=== PATIENT | male | born 1955 | race Asian ===

== ENCOUNTER 2020-07-19 10:04 | Emergency (ER) | payer OTHER ==
[~2020-07-19] VITALS: Ht 160 cm; Wt 60.0 kg
--- NOTE | 2020-07-19 10:20 | ED.ADGEN ---
General Adult EDM: Chief Complaint: ABDOMINAL PAIN HPI: HPI: Patient is a 64-year-old male who arrives ambulatory to the emergency department complaining of intermittent abdominal pain over the past month. The patient re ports his pain became increasingly worse last night in the epigastric region. Patient states his pain was so strong that he was unable to sleep at any time. Patient does report to be nauseated however has not had problems with vomiting or diarrhea. The patient does report fevers however he is afebrile here. He denies any shortness of air or chest pain. He further denies medical problems and has had both rounds of the coronavirus vaccine. He is awake, alert and nontoxic-appearing. Review of Systems: Review of Systems: Constitutional: Reports fever. Denies chills. [] Eyes: Denies change in visual acuity. [] HENT: Denies nasal congestion or sore throat. [] Respiratory: Denies cough or shortness of breath. [] Cardiovascular: Denies chest pain or edema. [] GI: Reports abdominal pain and nausea. Denies vomiting, bloody stools or diarrhea. [] : Denies dysuria. [] Musculoskeletal: Denies back pain or joint pain. [] Integument: Denies rash. [] Neurologic: Denies headache, focal weakness or sensory changes. [] Endocrine: Denies polyuria or polydipsia. [] Lymphatic: Denies swollen glands. [] Psychiatric: Denies depression or anxiety. [] Current Medications: Current Medications Medications (Trade) Dose Ordered Sig/Jeny Start Time Stop Time Status Last Admin Dose Admin Info (CONTRAST GIVEN -- Rx MONITORING) 1 each PRN DAILY PRN 07/19/20 11:45 07/21/20 11:44 Iohexol (Omnipaque 300 Mg/ml) 75 ml 1X ONCE 07/19/20 12:00 07/19/20 12:01 DC 07/19/20 11:50 75 ML Allergies: Allergies: Allergies Coded Allergies Type Severity Reaction Last Updated Verified No Known Drug Allergies 07/19/20 No Physical Exam: PE: Constitutional: Well developed, well nourished, no acute distress, non-toxic appearance. [] HENT: Normocephalic, atraumatic, bilateral external ears normal, oropharynx moist, no oral exudates, nose normal. [] Eyes: PERRLA, EOMI, conjunctiva normal, no discharge. [] Neck: Normal range of motion, no tenderness, supple, no stridor. [] Cardiovascular:Heart rate regular rhythm, no murmur [] Lungs & Thorax: Bilateral breath sounds clear to auscultation [] Abdomen: Mild tenderness to palpation of the epigastric region of the patient's abdomen. No guarding rebound is present. Bowel sounds normal, soft, no masses, no pulsatile masses. [] Skin: Warm, dry, no erythema, no rash. [] Back: No tenderness, no CVA tenderness. [] Extremities: No tenderness, no cyanosis, no clubbing, ROM intact, no edema. [] Neurologic: Alert and oriented X 3, normal motor function, normal sensory function, no focal deficits noted. [] Psychologic: Affect normal, judgement normal, mood normal. [] Current Patient Data: Labs: Laboratory Tests Test 07/19/20 10:37 07/19/20 10:45 White Blood Count 5.7 x10^3/uL (4.0-11.0) Red Blood Count 4.84 x10^6/uL (4.30-5.70) Hemoglobin 13.9 g/dL (13.0-17.5) Hematocrit 40.7 % (39.0-53.0) Mean Corpuscular Volume 84 fL (79-100) Mean Corpuscular Hemoglobin 29 pg (25-35) Mean Corpuscular Hemoglobin Concent 34 g/dL (31-37) Red Cell Distribution Width 13.5 % (11.5-14.5) Platelet Count 123 x10^3/uL (140-400) L Neutrophils (%) (Auto) 64 % (31-73) Lymphocytes (%) (Auto) 25 % (24-48) Monocytes (%) (Auto) 8 % (0-9) Eosinophils (%) (Auto) 3 % (0-3) Basophils (%) (Auto) 1 % (0-3) Neutrophils # (Auto) 3.6 x10^3/uL (1.8-7.7) Lymphocytes # (Auto) 1.4 x10^3/uL (1.0-4.8) Monocytes # (Auto) 0.4 x10^3/uL (0.0-1.1) Eosinophils # (Auto) 0.2 x10^3/uL (0.0-0.7) Basophils # (Auto) 0.0 x10^3/uL (0.0-0.2) Sodium Level 142 mmol/L (136-145) Potassium Level 2.9 mmol/L (3.5-5.1) *L Chloride Level 106 mmol/L (98-107) Carbon Dioxide Level 29 mmol/L (21-32) Anion Gap 7 (6-14) Blood Urea Nitrogen 15 mg/dL (8-26) Creatinine 0.9 mg/dL (0.7-1.3) Estimated GFR (Cockcroft-Gault) 85.0 BUN/Creatinine Ratio 17 (6-20) Glucose Level 146 mg/dL (70-99) H Calcium Level 8.6 mg/dL (8.5-10.1) Total Bilirubin 0.2 mg/dL (0.2-1.0) Aspartate Amino Transferase (AST) 19 U/L (15-37) Alanine Aminotransferase (ALT) 32 U/L (16-63) Alkaline Phosphatase 76 U/L (46-116) Troponin I Quantitative 0.039 ng/mL (0.000-0.055) Total Protein 7.0 g/dL (6.4-8.2) Albumin 3.3 g/dL (3.4-5.0) L Albumin/Globulin Ratio 0.9 (1.0-1.7) L Lipase 162 U/L (73-393) Urine Collection Type Unknown Urine Color Yellow Urine Clarity Clear Urine pH 6.5 (<5.0-8.0) Urine Specific [place] 1.010 (1.000-1.030) Urine Protein Negative mg/dL (NEG-TRACE) Urine Glucose (UA) Negative mg/dL (NEG) Urine Ketones (Stick) Negative mg/dL (NEG) Urine Blood Negative (NEG) Urine Nitrite Negative (NEG) Urine Bilirubin Negative (NEG) Urine Urobilinogen Dipstick 0.2 mg/dL (0.2 mg/dL) Urine Leukocyte Esterase Negative (NEG) Urine RBC 0 /HPF (0-2) Urine WBC 0 /HPF (0-4) Urine Squamous Epithelial Cells Few /LPF Urine Bacteria 0 /HPF (0-FEW) Laboratory Tests 07/19/20 10:37 Laboratory Tests 07/19/20 10:37 Vital Signs: Vital Signs Date Time Temp Pulse Resp B/P (MAP) Pulse Ox O2 Delivery O2 Flow Rate FiO2 07/19/20 10:11 98.2 68 16 196/87 (123) 96 Room Air 98.2 EKG: EKG: [] EKG obtained at 10:28 AM reveals a sinus rhythm with a ventricular rate of 63 bpm. There is what appears to be an incomplete right bundle branch block present. There are T wave inversion in the anterior lateral leads without acute ST/T wave changes to denote acute ischemia. Heart Score: C/O Chest Pain: No Risk Factors: Risk Factors: DM, Current or recent (<one month) smoker, HTN, HLP, family history of CAD, obesity. Risk Scores: Score 0 - 3: 2.5% MACE over next 6 weeks - Discharge Home Score 4 - 6: 20.3% MACE over next 6 weeks - Admit for Clinical Observation Score 7 - 10: 72.7% MACE over next 6 weeks - Early Invasive Strategies Radiology/Procedures: Radiology/Procedures: [] Impression: [facility] [address] [place] [address] IMAGING REPORT Signed PATIENT: ALEX JUNE ACCOUNT: [id number] : 1955 LOCATION: ER AGE: 64 SEX: M EXAM STATUS: PRE ER ORD. PHYSICIAN: IMAN QUIÑONES DO REASON: Epigastric abdominal pain/nausea PROCEDURE: ACUTE ABDOMEN SERIES XR ABDOMEN COMP ACUTE History: Reason: Epigastric abdominal pain/nausea / Spl. Instructions: / History: Technique: Supine and upright views of the abdomen. Comparison: None. Findings: No consolidation or pleural effusion. Normal heart size. No pneumothorax. No pneumoperitoneum. Mild small bowel gas. Air and stool throughout the colon. Mild colonic stool burden. Multilevel lumbar spondylosis. No air-fluid levels. Impression: 1. Nonobstructed bowel gas pattern. Electronically signed by: Denis Sheffield DO (07/19/2020 10:34 AM) [id number] DICTATED and SIGNED BY: DENIS SHEFFIELD DO DATE: 07/19/20 [id number] [facility] [address] [place] [address] IMAGING REPORT Signed PATIENT: ALEX JUNE ACCOUNT: [id number] : 1955 LOCATION: ER AGE: 64 SEX: M EXAM STATUS: REG ER ORD. PHYSICIAN: IMAN QUIÑONES DO REASON: abd PAIN PROCEDURE: CT ABD PELV W/ IV CONTRST ONLY PQRS Compliance Statement: One or more of the following individualized dose reduction techniques were utilized for this examination: 1. Automated exposure control 2. Adjustment of the mA and/or kV according to patient size 3. Use of iterative reconstruction technique CT ABDOMEN+PELVIS W Clinical Indication: Reason: abd PAIN / Spl Comparison: None. Technique: Helical CT imaging of the abdomen and pelvis is performed after 75 cc of Omnipaque 300 IV contrast. Oral contrast not administered. Findings: There is bilateral dependent atelectasis. Cardiac size upper limits of normal. Coronary artery disease. There are several hepatic cysts, largest measures 2.7 cm. The gallbladder is contracted. The spleen, pancreas, adrenal glands, and abdominal aorta caliber are normal. Kidneys enhance symmetrically, no hydronephrosis. No obvious abnormality of the stomach. There is no dilated small bowel. The distal colon is decompressed limiting evaluation. No colon wall thickening is seen. Appendix is not identified, no secondary signs of appendicitis. No abdominal adenopathy or free fluid is identified. Urinary bladder is mostly decompressed. There is mild wall thickening. The prostate is moderately enlarged. No pelvic free fluid is seen. There is transitional lumbosacral anatomy. The last fully formed disc space will be considered L5/S1. There is mild grade 1 anterolisthesis of L5 on S1. There is mild grade 1 retrolisthesis of L4 on L5. IMPRESSION: 1. Moderate prostatomegaly. 2. Mild wall thickening of mostly decompressed urinary bladder. Considerations include chronic bladder outlet obstruction, lack of distention, or nonspecific cystitis. 3. Hepatic cysts. Electronically signed by: Darrin Still MD (07/19/2020 12:32 PM) [id number] DICTATED and SIGNED BY: DARRIN STILL MD DATE: 07/19/20 [id number] Course & Med Decision Making: Course & Med Decision Making Pertinent Labs and Imaging studies reviewed. (See chart for details) I spoke with the patient and communicated to him that he needs to follow-up with GI. I provided him with Dr. Farley's information and have advised that he consider follow-up as well as possible endoscopy. The patient's is present and states he will do so. In the meantime of asked that he take a bland diet. Should he develop any fevers, vomiting or worsening pain he is to return. The patient understands and has agreed to do so. He is nontoxic-appearing and stable for discharge. [] Dragon Disclaimer: Dragon Disclaimer: This electronic medical record was generated, in whole or in part, using a voice recognition dictation system. Departure Departure Impression: Primary Impression: Abdominal pain Additional Impression: Hypokalemia Disposition: 01 DC HOME SELF CARE/HOMELESS Condition: GOOD Referrals: LINDA FARLEY MD Patient Instructions: Abdominal Pain, Hypokalemia Additional Instructions: Please take a bland diet during this time and consider GI follow-up for consultation and possible EGD/colonoscopy. Scripts Dicyclomine Hcl (DICYCLOMINE HCL) 10 Mg Capsule 1 CAP PO PRN Q6HRS for 3 Days, #12 CAP 3 Refills Prov: IMAN QUIÑONES DO 07/19/20 Famotidine (PEPCID) 20 Mg Tablet 20 MG PO BID for 15 Days, #30 TAB Prov: IMAN QUIÑONES DO 07/19/20 Ondansetron Hcl (ZOFRAN) 4 Mg Tablet 1 TAB PO PRN Q6-8HRS for nausea for 3 Days, #12 TAB Prov: IMAN QUIÑONES DO 07/19/20 Potassium Chloride (POTASSIUM CHLORIDE ) 20 Meq Tablet.er 40 MEQ PO DAILY for SUPPLEMENT for 5 Days, #5 TAB.SR Prov: IMAN QUIÑONES DO 07/19/20 Problem Qualifiers IMAN QUIÑONES DO Jul 19, 2020 10:20
--- NOTE | 2020-07-19 10:36 | RAD ---
XR ABDOMEN COMP ACUTE History: Reason: Epigastric abdominal pain/nausea / Spl. Instructions: / History: Technique: Supine and upright views of the abdomen. Comparison: None. Findings: No consolidation or pleural effusion. Normal heart size. No pneumothorax. No pneumoperitoneum. Mild small bowel gas. Air and stool throughout the colon. Mild colonic stool burden. Multilevel lumba r spondylosis. No air-fluid levels. Impression: 1. Nonobstructed bowel gas pattern. Electronically signed by: Denis Sheffield DO (07/19/2020 10:34 AM) [id number]
[2020-07-19 10:47] LABS: BASO % 1 % (0-3); EOS # 0.2 x10^3/uL (0.0-0.7); EOS % 3 % (0-3); HEMATOCRIT 40.7 % (39.0-53.0); HEMOGLOBIN 13.9 g/dL (13.0-17.5); LYMPH # 1.4 x10^3/uL (1.0-4.8); LYMPH % 25 % (24-48); MEAN CORPUSCULAR HEMOGLOBIN 29 pg (25-35); MEAN CORPUSCULAR HGB CONC 34 g/dL (31-37); MEAN CORPUSCULAR VOLUME 84 fL (79-100); MONO # 0.4 x10^3/uL (0.0-1.1); MONO % 8 % (0-9); NEUT # 3.6 x10^3/uL (1.8-7.7); NEUT % 64 % (31-73); PLATELET COUNT 123 x10^3/uL (140-400); RED BLOOD COUNT 4.84 x10^6/uL (4.30-5.70); RED CELL DISTRIBUTION WIDTH 13.5 % (11.5-14.5); WHITE BLOOD COUNT 5.7 x10^3/uL (4.0-11.0)
[2020-07-19 11:01] LABS: BILIRUBIN,URINE NEGATIVE (NEG); CLARITY,URINE CLEAR; COLOR,URINE YELLOW; NITRITE,URINE NEGATIVE (NEG); PH,URINE 6.5 (<5.0-8.0); PROTEIN,URINE NEGATIVE (NEG-TRACE); UROBILINOGEN,URINE 0.2 mg/dL (0.2 mg/dL)
[2020-07-19 11:08] LABS: ALBUMIN 3.3 g/dL (3.4-5.0); ALBUMIN/GLOBULIN RATIO 0.9 (1.0-1.7); CALCIUM 8.6 mg/dL (8.5-10.1); CREATININE 0.9 mg/dL (0.7-1.3); TOTAL BILIRUBIN 0.2 mg/dL (0.2-1.0)
[2020-07-19 11:15] LABS: BACTERIA,URINE 0 /HPF (0-FEW); RBC,URINE 0 /HPF (0-2); WBC,URINE 0 /HPF (0-4)
[2020-07-19 11:24] LABS: POTASSIUM 2.9 mmol/L (3.5-5.1)
[2020-07-19] MEDS ORDERED: CONTRAST GIVEN. MC PRN (11:45)
[2020-07-19] MEDS ORDERED: IOHEXOL 300 MG/ML 100ML VIAL. IV ONE (12:00)
--- NOTE | 2020-07-19 12:34 | RAD ---
PQRS Compliance Statement: One or more of the following individualized dose reduction techniques were utilized for this examinat ion: 1. Automated exposure control 2. Adjustment of the mA and/or kV according to patient size 3. Use of iterative reconstruction technique CT ABDOMEN+PELVIS W Clinical Indication: Reason: abd PAIN / Spl Comparison: None. Technique: Helical CT imaging of the abdomen and pelvis is performed after 75 cc of Omnipaque 300 IV contrast. Oral contrast not administered. Findings: There is bilateral dependent atelectasis. Cardiac size upper limits of normal. Coronary artery diseas e. There are several hepatic cysts, largest measures 2.7 cm. The gallbladder is contracted. The spleen, pancreas, adrenal glands, and abdominal aorta caliber are normal. Kidneys enhance symmetrically, no h ydronephrosis. No obvious abnormality of the stomach. There is no dilated small bowel. The distal colon is decompres sed limiting evaluation. No colon wall thickening is seen. Appendix is not identified, no secondary s igns of appendicitis. No abdominal adenopathy or free fluid is identified. Urinary bladder is mostly decompressed. There is mild wall thickening. The prostate is moderately enl arged. No pelvic free fluid is seen. There is transitional lumbosacral anatomy. The last fully formed disc space will be considered L5/S1. There is mild grade 1 anterolisthesis of L5 on S1. There is mild grade 1 retrolisthesis of L4 on L5. IMPRESSION: 1. Moderate prostatomegaly. 2. Mild wall thickening of mostly decompressed urinary bladder. Considerations include chronic bladd er outlet obstruction, lack of distention, or nonspecific cystitis. 3. Hepatic cysts. Electronically signed by: Darrin Still MD (07/19/2020 12:32 PM) [id number]
[2020-07-19] MEDS ORDERED: DICY10CA3 PO (12:52)
[2020-07-19] MEDS ORDERED: ONDA4TAB7 PO (12:52)
[2020-07-19] MEDS ORDERED: POTA20TA4 PO (12:52)
[2020-07-19] MEDS ORDERED: FAMO-63 PO (12:52)
[2020-07-19 13:21] VITALS: BP 152/70
== END 2020-07-19 13:55 | disposition home or self-care (01) ==
LOC: MERGE 10:04 → ER 10:04
DX: R10.13 Epigastric pain (principal); E87.6 Hypokalemia; R11.0 Nausea; K76.89 Other specified diseases of liver
CPT/HCPCS: 36415; 74022; 74177; 80053; 81001; 83690; 84484; 85025; 93005; 99285; Q9967

== ENCOUNTER 2021-05-28 12:27 | Observation (INO) | payer MEDICARE, OTHER ==
[~2021-05-28] VITALS: Ht 160 cm; Wt 53.8 kg
[~2021-05-28 12:27] MED LIST: DICY10CA3 PO; FAMO-63 PO; ONDA4TAB7 PO; POTA20TA4 PO
[2021-05-28 13:23] LABS: BILIRUBIN,URINE NEGATIVE (NEG); CLARITY,URINE CLEAR; COLOR,URINE YELLOW; NITRITE,URINE NEGATIVE (NEG); PROTEIN,URINE NEGATIVE (NEG-TRACE); UROBILINOGEN,URINE 0.2 mg/dL (0.2 mg/dL)
[2021-05-28] MEDS ORDERED: FAMOTIDINE 20 MG/2 ML VIAL IVP ONE (13:30)
[2021-05-28] MEDS ORDERED: IV NORMAL SALINE 1000ML BAG 1,000 ML IV ONE (13:30)
[2021-05-28 13:32] LABS: BASO # 0.1 x10^3/uL (0.0-0.2); BASO % 1 % (0-3); EOS # 0.2 x10^3/uL (0.0-0.7); EOS % 3 % (0-3); HEMATOCRIT 45.2 % (39.0-53.0); HEMOGLOBIN 14.7 g/dL (13.0-17.5); LYMPH # 1.9 x10^3/uL (1.0-4.8); LYMPH % 24 % (24-48); MEAN CORPUSCULAR HEMOGLOBIN 28 pg (25-35); MEAN CORPUSCULAR HGB CONC 33 g/dL (31-37); MEAN CORPUSCULAR VOLUME 87 fL (79-100); MONO # 0.4 x10^3/uL (0.0-1.1); MONO % 6 % (0-9); NEUT # 5.4 x10^3/uL (1.8-7.7); NEUT % 67 % (31-73); PLATELET COUNT 152 x10^3/uL (140-400); RED BLOOD COUNT 5.23 x10^6/uL (4.30-5.70); RED CELL DISTRIBUTION WIDTH 13.3 % (11.5-14.5)
[2021-05-28 13:49] LABS: BACTERIA,URINE MODERATE /HPF (0-FEW)
--- NOTE | 2021-05-28 13:50 | RAD ---
INDICATION: Reason: CHEST PAIN/EPIGASTRIC PAIN / Spl. Instructions: / History: COMPARISON: June 05, 2011 FINDINGS: Single view of chest obtained. Cardiomediastinal silhouette is similar to prior. There are some hazy opacities at left greater than right lung base. Mild interstitial prominence bila terally. IMPRESSION: * Mild haziness at left greater than right lung base which could be from atelectasis or infiltrate. Electronically signed by: Alirio Collier MD (05/28/2021 1:48 PM) [id number]
[2021-05-28 13:54] LABS: CALCIUM 8.7 mg/dL (8.5-10.1); POTASSIUM 4.2 mmol/L (3.5-5.1)
--- NOTE | 2021-05-28 14:01 | PHYS DOC ---
Past Medical History Past Medical History: Other Additional Past Medical Histor: ulcer Past Surgical History: No Surgical History Smoking Status: Never Smoker Alcohol Use: None Drug Use: None General Adult EDM: Chief Complaint: ABDOMINAL PAIN HPI: HPI: Patient is a 65 year old male who presents with 2 days of epigastric abdominal pain, headache and chest pain. He denies dizziness, syncope, hitting his head, fever, nausea, vomiting, diarrhea, shortness of breath, cough, vision change, focal weakness, numbness or tingling. Rates his pain as 5 out of 10 aching and nonradiating. Review of Systems: Review of Systems: Constitutional: Denies fever or chills. [] Eyes: Denies change in visual acuity. [] HENT: Denies nasal congestion or sore throat. [] Respiratory: Denies cough or shortness of breath. [] Cardiovascular: + chest pain or denies edema. [] GI: +epigastric abdominal pain, denies nausea, vomiting, bloody stools or diarrhea. [] : Denies dysuria. [] Musculoskeletal: Denies back pain or joint pain. [] Integument: Denies rash. [] Neurologic: + headache, denies focal weakness or sensory changes. [] Endocrine: Denies polyuria or polydipsia. [] Lymphatic: Denies swollen glands. [] Psychiatric: Denies depression or anxiety. [] Heart Score: C/O Chest Pain: Yes HEART Score for Chest Pain: HEART Score for Chest Pain Response (Comments) Value History Slighlty/Non-Suspicious 0 ECG Nonspecific Repolarizatio 1 Age > 65 2 Risk Factors 1 or 2 Risk Factors 1 Troponin < Normal Limit 0 Total 4 Risk Factors: Risk Factors: DM, Current or recent (<one month) smoker, HTN, HLP, family history of CAD, obesity. Risk Scores: Score 0 - 3: 2.5% MACE over next 6 weeks - Discharge Home Score 4 - 6: 20.3% MACE over next 6 weeks - Admit for Clinical Observation Score 7 - 10: 72.7% MACE over next 6 weeks - Early Invasive Strategies Current Medications: Current Medications Medications (Trade) Dose Ordered Sig/Jeny Start Time Stop Time Status Last Admin Dose Admin Famotidine (Pepcid Vial) 20 mg 1X ONCE 05/28/21 13:30 05/28/21 13:31 DC 05/28/21 13:30 20 MG Sodium Chloride 1,000 ml @ 1,000 mls/hr 1X ONCE 05/28/21 13:30 05/28/21 14:29 05/28/21 13:30 1,000 MLS/HR Allergies: Allergies: Allergies Coded Allergies Type Severity Reaction Last Updated Verified No Known Drug Allergies 04/16/14 No Physical Exam: PE: Constitutional: Well developed, well nourished, no acute distress, non-toxic appearance. [] HENT: Normocephalic, atraumatic, bilateral external ears normal, oropharynx moist, no oral exudates, nose normal. [] Eyes: PERRLA, EOMI, conjunctiva normal, no discharge. [] Neck: Normal range of motion, no tenderness, supple, no stridor. [] Cardiovascular:Heart rate regular rhythm, no murmur [] Lungs & Thorax: Bilateral breath sounds clear to auscultation [] Abdomen: Bowel sounds normal, soft, epigastric tenderness, no masses, no pulsatile masses. [] Skin: Warm, dry, no erythema, no rash. [] Back: No tenderness, no CVA tenderness. [] Extremities: No tenderness, no cyanosis, no clubbing, ROM intact, no edema. [] Neurologic: Alert and oriented X 3, normal motor function, normal sensory function, no focal deficits noted. [] Psychologic: Affect normal, judgement normal, mood normal. [] Current Patient Data: Labs: Laboratory Tests Test 05/28/21 13:10 White Blood Count 8.0 x10^3/uL (4.0-11.0) Red Blood Count 5.23 x10^6/uL (4.30-5.70) Hemoglobin 14.7 g/dL (13.0-17.5) Hematocrit 45.2 % (39.0-53.0) Mean Corpuscular Volume 87 fL (79-100) Mean Corpuscular Hemoglobin 28 pg (25-35) Mean Corpuscular Hemoglobin Concent 33 g/dL (31-37) Red Cell Distribution Width 13.3 % (11.5-14.5) Platelet Count 152 x10^3/uL (140-400) Neutrophils (%) (Auto) 67 % (31-73) Lymphocytes (%) (Auto) 24 % (24-48) Monocytes (%) (Auto) 6 % (0-9) Eosinophils (%) (Auto) 3 % (0-3) Basophils (%) (Auto) 1 % (0-3) Neutrophils # (Auto) 5.4 x10^3/uL (1.8-7.7) Lymphocytes # (Auto) 1.9 x10^3/uL (1.0-4.8) Monocytes # (Auto) 0.4 x10^3/uL (0.0-1.1) Eosinophils # (Auto) 0.2 x10^3/uL (0.0-0.7) Basophils # (Auto) 0.1 x10^3/uL (0.0-0.2) Laboratory Tests 05/28/21 13:10 Vital Signs: Vital Signs Date Time Temp Pulse Resp B/P (MAP) Pulse Ox O2 Delivery O2 Flow Rate FiO2 05/28/21 12:37 98.1 65 16 175/56 (95) 97 Room Air 98.1 EKG: EK and read by Dr. Santamaria as sinus rhythm but no STEMI Radiology/Procedures: Radiology/Procedures: [] Impression: [facility] [address] [place], [place] [id number] IMAGING REPORT Signed PATIENT: Rajesh JUNE ACCOUNT: [id number] : 1955 LOCATION: ER AGE: 65 SEX: M EXAM STATUS: REG ER ORD. PHYSICIAN: BRENDA DORANTES APRN REASON: CHEST PAIN/EPIGASTRIC PAIN PROCEDURE: PORTABLE CHEST 1V INDICATION: Reason: CHEST PAIN/EPIGASTRIC PAIN / Spl. Instructions: / History: COMPARISON: June 05, 2011 FINDINGS: Single view of chest obtained. Cardiomediastinal silhouette is similar to prior. There are some hazy opacities at left greater than right lung base. Mild interstitial prominence bilaterally. IMPRESSION: * Mild haziness at left greater than right lung base which could be from atelectasis or infiltrate. Electronically signed by: Gloria Nobles MD (05/28/2021 1:48 PM) [id number] DICTATED and SIGNED BY: GLORIA NOBLES MD DATE: 05/28/21 [id number] [facility] [address] [place] [address] IMAGING REPORT Signed PATIENT: Rajesh JUNE ACCOUNT: [id number] : 1955 LOCATION: ER AGE: 65 SEX: M EXAM STATUS: REG ER ORD. PHYSICIAN: BRENDA DORANTES APRN REASON: headache, htn PROCEDURE: CT HEAD WO CONTRAST EXAMINATION: CT HEAD/BRAIN WO CLINICAL HISTORY: Headache, hypertension. TECHNIQUE: Serial axial images without IV contrast were obtained from the vertex to the foramen magnum. Artificial intelligence software analysis also performed utilizing [employer]. CT Dose Reduction Employed: One or more of the following individualized dose reduction techniques were utilized for this examination: 1. Automated exposure control 2. Adjustment of the mA and/or kV according to patient size 3. Use of iterative reconstruction technique. COMPARISON: None FINDINGS: Acute Change: No evidence of an acute infarct or other acute parenchymal process. Hemorrhage: No evidence of acute intracranial hemorrhage. Mass Lesion/Mass Effect: No evidence of intracranial mass or extraaxial fluid collection. No significant mass effect. Chronic Change: Scattered patchy foci of hypoattenuation in the supratentorial white matter, nonspecific but likely represents mild microvascular ischemia. Atherosclerotic calcification of the intracranial portion of the bilateral internal carotid arteries. Parenchyma: Mild generalized volume loss. Ventricles: Ventricles within normal limits for age. Paranasal Sinuses and Skull Base: Moderate secretions/periosteal thickening in the partially visualized ethmoid air cells. Mild secretions/mucoperiosteal thickening in the left greater than right frontal sinus. Hypopneumatization of the bilateral mastoid air cells. Visualized skull base and soft tissues unremarkable. IMPRESSION: No evidence of acute intracranial abnormality. Partially visualized mild to moderate paranasal sinus disease. Electronically signed by: Rashi Lang DO (05/28/2021 2:27 PM) [facility] DICTATED and SIGNED BY: RASHI LANG DO DATE: 05/28/21 [id number] [facility] [address] [place] [address] IMAGING REPORT Signed PATIENT: Rajesh JUEN ACCOUNT: [id number] : 1955 LOCATION: ER AGE: 65 SEX: M EXAM STATUS: REG ER ORD. PHYSICIAN: BRENDA DORANTES APRN REASON: epigastric tenderness and chest pain PROCEDURE: CT ABD PELV W/ IV CONTRST ONLY Exam: CT of abdomen and pelvis with contrast INDICATION: Epigastric tenderness TECHNIQUE: Sequential axial images through the abdomen and pelvis obtained following the administration of 75 mL of Isovue-370 IV contrast. Sagittal and coronal reformatted images were reconstructed from the axial data and reviewed. Exposure: One or more of the following in the visualized dose reduction techniques were utilized for this examination: 1. Automated exposure control 2. Adjustment of the MA and/or KV according to patient size 3. Use of iterative of reconstructive technique Comparisons: None FINDINGS: Heart size is normal. No pericardial effusion. Visualized lung bases are clear. No pleural effusion. Several hypoattenuating cystic lesions at the liver. Spleen, pancreas, gallbladder and adrenals are unremarkable. No perinephric inflammation or hydronephrosis. No renal or ureteral calculi are identified. Bladder is partially distended and appears thin-walled. Prostate is moderately enlarged. Large and small bowel are unremarkable. Appendix is not identified. No free intra-abdominal air or fluid. No obstruction. Abdominal aorta has normal course and caliber. Abdominal vasculature is patent. No intra-abdominal lymph nodes are identified. No suspicious osseous lesions or acute fractures. IMPRESSION: No acute process identified within the abdomen or pelvis. Electronically signed by: Jocelyne Cho MD (05/28/2021 3:44 PM) [facility] DICTATED and SIGNED BY: JOCELYNE CHO MD DATE: 05/28/21 [id number] 0 Course & Med Decision Making: Course & Med Decision Making Pertinent Labs and Imaging studies reviewed. (See chart for details) COVID-19 CRITERIA: The patient was evaluated during the global COVID-19 pandemic, and that diagnosis was suspected/considered upon their initial presentation. Their evaluation, treatment and testing was consistent with current guidelines for patients who present with complaints or symptoms that may be related to COVID-19. Alert and oriented x4. Ambulatory steady gait. Speaks in full clear sentences. Lungs are clear to all station all lobes. Abdomen is soft but slightly tender in the epigastric area. No CVA tenderness. No extremity swelling. Afebrile. Slightly hypertensive. I spoke to Dr. Bella who states to admit the patient for pneumonia and for observation for chest pain. I also consulted GI for his continued abdominal pain. [] Thao Disclaimer: Thao Disclaimer: This electronic medical record was generated, in whole or in part, using a voice recognition dictation system. COVID-19 Patient Risks: Age 65 or older: No Sign of co-morbidity: Yes Exp to person + for COVID: No Exp to PUI: No Travel from affected area: No Lower respiratory symptoms: Yes Fever: No Other: Yes (headache) PPE Use: Full PPE with N95 mask or PAPR: Yes Departure Departure Impression: Primary Impression: Pneumonia Qualified Codes: J18.9 - Pneumonia, unspecified organism Additional Impressions: Chest pain Qualified Codes: R07.9 - Chest pain, unspecified Abdominal pain Qualified Codes: R10.9 - Unspecified abdominal pain Disposition: ADMITTED INPATIENT Admitting Physician: Malachi Bella Condition: STABLE Referrals: MALACHI BELLA MD (PCP) BRENDA DORANTES PARTITION SETTER May 28, 2021 14:00
[2021-05-28 14:02] LABS: ALBUMIN 3.7 g/dL (3.4-5.0); ALBUMIN/GLOBULIN RATIO 0.8 (1.0-1.7); TOTAL BILIRUBIN 0.4 mg/dL (0.2-1.0); TOTAL PROTEIN 8.1 g/dL (6.4-8.2)
[2021-05-28 14:04] LABS: INFLUENZA A PATIENT NEGATIVE (NEGATIVE); INFLUENZA B PATIENT NEGATIVE (NEGATIVE)
[2021-05-28] MEDS ORDERED: cefTRIAXone IV Push 1 GM VIAL. IVP ONE (14:15)
--- NOTE | 2021-05-28 14:29 | RAD ---
EXAMINATION: CT HEAD/BRAIN WO CLINICAL HISTORY: Headache, hypertension. TECHNIQUE: Serial axial images without IV contrast were obtained from the vertex to the foramen magnu m. Artificial intelligence software analysis also performed utilizing [employer]. CT Dose Reduction Employed: One or more of the following individualized dose reduction techniques wer e utilized for this examination: 1. Automated exposure control 2. Adjustment of the mA and/or kV ac cording to patient size 3. Use of iterative reconstruction technique. COMPARISON: None FINDINGS: Acute Change: No evidence of an acute infarct or other acute parenchymal process. Hemorrhage: No evidence of acute intracranial hemorrhage. Mass Lesion/Mass Effect: No evidence of intracranial mass or extraaxial fluid collection. No signific ant mass effect. Chronic Change: Scattered patchy foci of hypoattenuation in the supratentorial white matter, nonspeci fic but likely represents mild microvascular ischemia. Atherosclerotic calcification of the intracran ial portion of the bilateral internal carotid arteries. Parenchyma: Mild generalized volume loss. Ventricles: Ventricles within normal limits for age. Paranasal Sinuses and Skull Base: Moderate secretions/periosteal thickening in the partially visualiz ed ethmoid air cells. Mild secretions/mucoperiosteal thickening in the left greater than right fronta l sinus. Hypopneumatization of the bilateral mastoid air cells. Visualized skull base and soft tissue s unremarkable. IMPRESSION: No evidence of acute intracranial abnormality. Partially visualized mild to moderate paranasal sinus disease. Electronically signed by: Rashi Rosenberg DO (05/28/2021 2:27 PM) [facility]
[2021-05-28] MEDS ORDERED: AZITHROMYCIN 500 MG in IV NORMAL SALINE 250ML 250 ML IV ONE (14:30)
--- NOTE | 2021-05-28 14:33 | EKG ---
[facility] [address] [place] [address] Test Date: 2021-05-28 Test Time: 13:15:02 Pat Name: Rajesh JUNE Department: Room: Gender: M Data Warehouse Manager: : 1955 Requested By: BRENDA DORANTES Order Number: [id number] Reading MD: Kody Flores Measurements Intervals [place] Rate: 64 P: 34 DE: 188 QRS: 23 QRSD: 88 T: 93 QT: 394 QTc: 410 Interpretive Statements SINUS RHYTHM LEFT ATRIAL ABNORMALITY NON SPECIFIC ST-T WAVE CHANGES INFERIOR Q WAVE POSIBLE OLD [place] Electronically Signed On 05-29-2021 8:58:24 VESSEL SLAGMAN by Kody Flores
[2021-05-28] MEDS ORDERED: IOHEXOL 300 MG/ML 100ML VIAL. IV ONE (14:45)
[2021-05-28] MEDS ORDERED: IOHEXOL 300 MG/ML 100ML VIAL. ONE (14:47)
--- NOTE | 2021-05-28 15:47 | RAD ---
Exam: CT of abdomen and pelvis with contrast INDICATION: Epigastric tenderness TECHNIQUE: Sequential axial images through the abdomen and pelvis obtained following the administrati on of 75 mL of Isovue-370 IV contrast. Sagittal and coronal reformatted images were reconstructed fro m the axial data and reviewed. Exposure: One or more of the following in the visualized dose reduction techniques were utilized for this examination: 1. Automated exposure control 2. Adjustment of the MA and/or KV according to patient size 3. Use of iterative of reconstructive technique Comparisons: None FINDINGS: Heart size is normal. No pericardial effusion. Visualized lung bases are clear. No pleural effusion. Several hypoattenuating cystic lesions at the liver. Spleen, pancreas, gallbladder and adrenals are u nremarkable. No perinephric inflammation or hydronephrosis. No renal or ureteral calculi are identified. Bladder is partially distended and appears thin-walled. Prostate is moderately enlarged. Large and small bowel are unremarkable. Appendix is not identified. No free intra-abdominal air or fl uid. No obstruction. Abdominal aorta has normal course and caliber. Abdominal vasculature is patent. No intra-abdominal lymph nodes are identified. No suspicious osseous lesions or acute fractures. IMPRESSION: No acute process identified within the abdomen or pelvis. Electronically signed by: Jocelyne Velázquez MD (05/28/2021 3:44 PM) [facility]
[2021-05-28 22:00] VITALS: BP 188/89
--- NOTE | 2021-05-28 22:30 | NUR ---
Admit from ER to [address] [place] [address] room 663 via [facility]. A/O x 4. Pleasant. Cooperative. Ambulated from [place] in [place] to bed in room with steady gait. Does not know what pharmacy he uses. Reports he takes "3 medications" at home but does not know what they are. Will get information from his daughter, Faub, , in the morning. Orientated to room and call light. Reviewed POC to include tele monitor and to call for assist when out of bed. Verbalized understanding. Resting in bed. Call light at hand. Bed alarm on.
[2021-05-29 02:49] VITALS: BP 150/52
[2021-05-29 06:18] LABS: BASO % 0 % (0-3); EOS # 0.2 x10^3/uL (0.0-0.7); EOS % 3 % (0-3); HEMATOCRIT 41.1 % (39.0-53.0); HEMOGLOBIN 13.6 g/dL (13.0-17.5); LYMPH % 24 % (24-48); MEAN CORPUSCULAR HEMOGLOBIN 28 pg (25-35); MEAN CORPUSCULAR HGB CONC 33 g/dL (31-37); MEAN CORPUSCULAR VOLUME 86 fL (79-100); MONO # 0.5 x10^3/uL (0.0-1.1); MONO % 7 % (0-9); NEUT # 5.4 x10^3/uL (1.8-7.7); NEUT % 66 % (31-73); PLATELET COUNT 148 x10^3/uL (140-400); RED BLOOD COUNT 4.79 x10^6/uL (4.30-5.70); WHITE BLOOD COUNT 8.2 x10^3/uL (4.0-11.0)
[2021-05-29 06:49] LABS: ALBUMIN 3.2 g/dL (3.4-5.0); ALBUMIN/GLOBULIN RATIO 0.9 (1.0-1.7); CALCIUM 8.1 mg/dL (8.5-10.1); POTASSIUM 3.7 mmol/L (3.5-5.1); TOTAL BILIRUBIN 0.2 mg/dL (0.2-1.0); TOTAL PROTEIN 6.6 g/dL (6.4-8.2)
[2021-05-29 07:00] VITALS: BP 130/73
--- NOTE | 2021-05-29 09:20 | PDOC2 ---
ANGELA REINOSO APRN 05/29/21 0920: CARDIAC CONSULT DATE OF CONSULT Date of Consult DATE: 05/29/21 TIME: 09:14 REASON FOR CONSULT Reason for Consult: Chest pain REFERRING PHYSICIAN Referring Physician: Arabella Garcia APRN SOURCE Source: Chart review, Patient HISTORY OF PRESENT ILLNESS HISTORY OF PRESENT ILLNESS This is a 65 yo male who presented secondary to abdominal pain, headache, and epigastric chest pain. Has been present over the last couple of days. Describes as sharp pain. Seems to be worse with eating. No associated shortness of breath, dizziness, diaphoresis, or nausea/vomiting. PAST MEDICAL HISTORY Cardiovascular: No pertinent hx Pulmonary: No pertinent hx GI: Peptic Ulcer disease Renal/: No pertinent hx PAST SURGICAL HISTORY Past Surgical History: No pertinent history FAMILY HISTORY Family History: Other (no pertinent history ) SOCIAL HISTORY Smoke: No ALCOHOL: none Drugs: None Lives: with Family CURRENT MEDICATIONS CURRENT MEDICATIONS Current Medications Medications (Trade) Dose Ordered Sig/Jeny Route PRN Reason Start Time Stop Time Status Last Admin Dose Admin Famotidine (Pepcid Vial) 20 mg 1X ONCE IVP 05/28/21 13:30 05/28/21 13:31 DC 05/28/21 13:30 Sodium Chloride 1,000 ml @ 1,000 mls/hr 1X ONCE IV 05/28/21 13:30 05/28/21 14:29 DC 05/28/21 13:30 Azithromycin 500 mg/Sodium Chloride 250 ml @ 250 mls/hr 1X ONCE IV 05/28/21 14:30 05/28/21 15:29 DC 05/28/21 14:30 Ceftriaxone Sodium (Rocephin) 1 gm 1X ONCE IVP 05/28/21 14:15 05/28/21 14:16 DC 05/28/21 14:15 Iohexol (Omnipaque 300 Mg/ml) 75 ml 1X ONCE IV 05/28/21 14:45 05/28/21 14:47 DC 05/28/21 14:45 ALLERGIES ALLERGIES: Coded Allergies: No Known Drug Allergies (Unverified , 04/16/14) ROS Review of System 14 point ROS conducted with pertinent positives noted above in HPI PHYSICAL EXAM General: Alert, Oriented X3, Cooperative, No acute distress HEENT: Atraumatic Lungs: Clear to auscultation Heart: Regular rate Abdomen: Other (mild tenderness) Extremities: No edema, Normal pulses Skin: No significant lesion Neuro: Normal speech, Sensation intact Psych/Mental Status: Mental status NL, Mood NL MUSCULOSKELETAL: Osteoarthritic changes both hands VITALS/I&O VITALS/I&O: Vital Signs Date Time Temp Pulse Resp B/P (MAP) Pulse Ox O2 Delivery O2 Flow Rate FiO2 05/29/21 07:00 98.2 65 16 130/73 (92) 96 Room Air 98.2 I & O 05/28/21 05/28/21 05/29/21 15:00 23:00 07:00 Intake Total 50 ml Output Total 300 ml Balance -250 ml LABS Lab: Laboratory Tests Test 05/28/21 13:10 05/28/21 13:35 05/28/21 16:07 05/28/21 18:10 White Blood Count 8.0 x10^3/uL (4.0-11.0) Red Blood Count 5.23 x10^6/uL (4.30-5.70) Hemoglobin 14.7 g/dL (13.0-17.5) Hematocrit 45.2 % (39.0-53.0) Mean Corpuscular Volume 87 fL (79-100) Mean Corpuscular Hemoglobin 28 pg (25-35) Mean Corpuscular Hemoglobin Concent 33 g/dL (31-37) Red Cell Distribution Width 13.3 % (11.5-14.5) Platelet Count 152 x10^3/uL (140-400) Neutrophils (%) (Auto) 67 % (31-73) Lymphocytes (%) (Auto) 24 % (24-48) Monocytes (%) (Auto) 6 % (0-9) Eosinophils (%) (Auto) 3 % (0-3) Basophils (%) (Auto) 1 % (0-3) Neutrophils # (Auto) 5.4 x10^3/uL (1.8-7.7) Lymphocytes # (Auto) 1.9 x10^3/uL (1.0-4.8) Monocytes # (Auto) 0.4 x10^3/uL (0.0-1.1) Eosinophils # (Auto) 0.2 x10^3/uL (0.0-0.7) Basophils # (Auto) 0.1 x10^3/uL (0.0-0.2) Urine Collection Type Unknown Urine Color Yellow Urine Clarity Clear Urine pH 6.0 (<5.0-8.0) Urine Specific [place] <=1.005 (1.000-1.030) Urine Protein Negative mg/dL (NEG-TRACE) Urine Glucose (UA) Negative mg/dL (NEG) Urine Ketones (Stick) Negative mg/dL (NEG) Urine Blood Negative (NEG) Urine Nitrite Negative (NEG) Urine Bilirubin Negative (NEG) Urine Urobilinogen Dipstick 0.2 mg/dL (0.2 mg/dL) Urine Leukocyte Esterase Negative (NEG) Urine RBC 6-10 /HPF (0-2) Urine WBC 1-4 /HPF (0-4) Urine Squamous Epithelial Cells Few /LPF Urine Bacteria Moderate /HPF (0-FEW) Sodium Level 142 mmol/L (136-145) Potassium Level 4.2 mmol/L (3.5-5.1) Chloride Level 105 mmol/L (98-107) Carbon Dioxide Level 25 mmol/L (21-32) Anion Gap 12 (6-14) Blood Urea Nitrogen 13 mg/dL (8-26) Creatinine 1.0 mg/dL (0.7-1.3) Estimated GFR (Cockcroft-Gault) 75.0 BUN/Creatinine Ratio 13 (6-20) Glucose Level 115 mg/dL (70-99) H Lactic Acid Level 2.0 mmol/L (0.4-2.0) Calcium Level 8.7 mg/dL (8.5-10.1) Total Bilirubin 0.4 mg/dL (0.2-1.0) Aspartate Amino Transferase (AST) 22 U/L (15-37) Alanine Aminotransferase (ALT) 45 U/L (16-63) Alkaline Phosphatase 85 U/L (46-116) Troponin I High Sensitivity 64 ng/L (4-75) 65 ng/L (4-75) 56 ng/L (4-75) Total Protein 8.1 g/dL (6.4-8.2) Albumin 3.7 g/dL (3.4-5.0) Albumin/Globulin Ratio 0.8 (1.0-1.7) L Lipase 141 U/L (73-393) Influenza Type A Antigen Negative (NEGATIVE) Influenza Type B Antigen Negative (NEGATIVE) SARS-CoV-2 Antigen (Rapid) Negative (NEGATIVE) Test 05/29/21 04:20 White Blood Count 8.2 x10^3/uL (4.0-11.0) Red Blood Count 4.79 x10^6/uL (4.30-5.70) Hemoglobin 13.6 g/dL (13.0-17.5) Hematocrit 41.1 % (39.0-53.0) Mean Corpuscular Volume 86 fL (79-100) Mean Corpuscular Hemoglobin 28 pg (25-35) Mean Corpuscular Hemoglobin Concent 33 g/dL (31-37) Red Cell Distribution Width 13.0 % (11.5-14.5) Platelet Count 148 x10^3/uL (140-400) Neutrophils (%) (Auto) 66 % (31-73) Lymphocytes (%) (Auto) 24 % (24-48) Monocytes (%) (Auto) 7 % (0-9) Eosinophils (%) (Auto) 3 % (0-3) Basophils (%) (Auto) 0 % (0-3) Neutrophils # (Auto) 5.4 x10^3/uL (1.8-7.7) Lymphocytes # (Auto) 2.0 x10^3/uL (1.0-4.8) Monocytes # (Auto) 0.5 x10^3/uL (0.0-1.1) Eosinophils # (Auto) 0.2 x10^3/uL (0.0-0.7) Basophils # (Auto) 0.0 x10^3/uL (0.0-0.2) Sodium Level 142 mmol/L (136-145) Potassium Level 3.7 mmol/L (3.5-5.1) Chloride Level 106 mmol/L (98-107) Carbon Dioxide Level 28 mmol/L (21-32) Anion Gap 8 (6-14) Blood Urea Nitrogen 15 mg/dL (8-26) Creatinine 1.0 mg/dL (0.7-1.3) Estimated GFR (Cockcroft-Gault) 75.0 BUN/Creatinine Ratio 15 (6-20) Glucose Level 82 mg/dL (70-99) Calcium Level 8.1 mg/dL (8.5-10.1) L Total Bilirubin 0.2 mg/dL (0.2-1.0) Aspartate Amino Transferase (AST) 25 U/L (15-37) Alanine Aminotransferase (ALT) 43 U/L (16-63) Alkaline Phosphatase 80 U/L (46-116) Total Protein 6.6 g/dL (6.4-8.2) Albumin 3.2 g/dL (3.4-5.0) L Albumin/Globulin Ratio 0.9 (1.0-1.7) L Laboratory Tests 05/28/21 13:10 05/29/21 04:20 Laboratory Tests 05/28/21 13:10 05/29/21 04:20 ASSESSMENT/PLAN ASSESSMENT/PLAN 1. Abdominal pain; CT abdomen/pelvis without acute findings. as per IM 2. Chest, epigastric pain, atypical; AMI ruled out. 3. FREDERICK; CT head without acute changes 4. Hypertension; mildly elevated Recommendations Lipids Echo to assess LV systolic function Hydralazine IV PRN Consider outpatient ischemic evaluation LUI SEDUARDO BAKER MD 05/29/21 1510: CARDIAC CONSULT ASSESSMENT/PLAN ASSESSMENT/PLAN Patient seen and evaluated. I agree with our nurse practitioners assessment and plan. Chest pain. Atypical. Nonspecific EKG changes. Negative troponin x3. Continue medical treatment. Echocardiogram. Abdominal pain. Improved. No acute findings on CT scans of the abdomen and pelvis. Work-up continuing. Hypertension. Mildly elevated. Continue present medications. Hydralazine as needed. Uncertain cholesterol panel. Will check morning lab. Headache. Improved. CT head scan without acute changes. ANGELA REINOSO APRN May 29, 2021 09:20 LUIS EDUARDO BAKER MD May 29, 2021 15:10
[2021-05-29 09:46] LABS: CHOLESTEROL/HDL RATIO 4.8
[2021-05-29 11:00] VITALS: BP 154/76
--- NOTE | 2021-05-29 12:03 | NUR ---
SS following for discharge planning. SS reviewed pt chart and discussed with pt RN. Pt is from home and is currently on room air. COVID19 negative. Cardiology and GI consulted. ECHO ordered. SS will continue to follow for discharge planning.
--- NOTE | 2021-05-29 12:57 | RAD ---
Study: XR CHEST 2V Indication: Pneumonia. Comparison: 05/28/2021 Findings: Unchanged cardiomediastinal silhouette and red. There is again mild asymmetric elevation of the righ t diaphragm. Hazy attenuation at the lung bases is less conspicuous from the recent comparison. No co nfluent airspace infiltrate at the upper lungs. No pleural effusion or pneumothorax. Well-formed stool within the visualized colon mainly at the ascending aspect up to the hepatic flexur e. No free gas seen under the diaphragm. Osseous structures. Impression: Hazy attenuation at the lung bases described on the comparison is less noticeable relative to the rec ent comparison. No convincing radiographic evidence for pneumonia at this time. Electronically signed by: TJ VERNON MD (05/29/2021 12:55 PM) [facility]
[2021-05-29] MEDS ORDERED: hydrALAZINE 20 MG/ML VIAL. IVP PRN (13:15)
[2021-05-29] MEDS ORDERED: TRAM50TA PO (13:38)
--- NOTE | 2021-05-29 13:44 | PDOC ---
Provider Note Date of Service: DATE: 05/29/21 TIME: 13:43 Provider Note Pt seen , combined H&P and discharge summary dictated.#[id number]. Justifications for Admission Other Justification MARC BELLA MD May 29, 2021 13:44
[2021-05-29 15:00] VITALS: BP 144/79
--- NOTE | 2021-05-29 15:17 | CARD ---
MR#: [id number] Date of Study: 05/29/2021 Ordering Physician: ANGELA REINOSO, Referring Physician: ANGELA REINOSO, Tech: Mila Dalvychris, [facility] APPROVED REPORT EXAM: Two-dimensional and M-mode echocardiogram with Doppler and color Doppler. Other Information Quality : AverageHR: 56bpm INDICATION Chest Pain RISK FACTORS Hypertension 2D DIMENSIONS Left Atrium(2D)2.7 (1.6-4.0cm)IVSd1.2 (0.7-1.1cm) Aortic Root(2D)3.5 (2.0-3.7cm)LVDd4.3 (3.9-5.9cm) LVOT Diameter2.0 (1.8-2.4cm)PWd1.0 (0.7-1.1cm) LVDs2.4 (2.5-4.0cm)FS (%) 43.5 % SV61.8 mlLVEF(%)75.0 (>50%) Aortic Valve AoV Peak Sudhir.135.9cm/sAoV VTI35.5cm AO Peak GR.7.4mmHgLVOT VTI 34.43cm AO Mean GR.4mmHgAI P 1/2 [id number] Mitral Valve MV E Miqihwvg40.3cm/sMV E Peak Gr.3mmHg MV DECEL [id number] A Tzmopgxu00.2cm/s MV E Mean Gr.1mmHgE/A Ratio1.2 TDI Lateral E' P. V8.30cm/sMedial E' P. V7.02cm/s E/Lateral E'6.3E/Medial E'7.5 Tricuspid Valve TR P. Tyvuunkm482ih/sRAP NRVVCENK5kaHx TR Peak Gr.24gbMdKMOK78tiNw Pulmonary Vein S1 Huolztdc15.8cm/sS2 Zdfrtffr63.44cm/s D2 Kahywtcw27.4cm/sPVa soooxqin087dabq LEFT VENTRICLE The left ventricle is normal size. There is borderline to mild concentric left ventricular hypertroph y. The left ventricular systolic function is normal. The Ejection Fraction is 55-60%. There is normal LV segmental wall motion. RIGHT VENTRICLE The right ventricle is normal size. There is normal right ventricular wall thickness. The right ventr icular systolic function is normal. ATRIA The left atrium size is normal. The right atrium size is normal. The interatrial septum is intact wit h no evidence for an atrial septal defect or patent foramen ovale as noted on 2-D or Doppler imaging. AORTIC VALVE The aortic valve is normal in structure and function. Doppler and Color Flow revealed mild aortic reg urgitation. There is no significant aortic valvular stenosis. Calculated aortic valve area is 2.8 cm2 with maximum pressure gradient of 8 mmHg and mean pressure gradient of 5 mmHg. MITRAL VALVE The mitral valve is normal in structure and function. There is no evidence of mitral valve prolapse. There is no mitral valve stenosis. Doppler and Color-flow revealed trace mitral regurgitation. TRICUSPID VALVE The tricuspid valve is normal in structure and function. Doppler and Color Flow revealed trace tricus pid regurgitation with an estimated PAP of 28 mmHg. There is no tricuspid valve stenosis. PULMONIC VALVE The pulmonary valve is normal in structure and function. Doppler and Color Flow revealed trace pulmon ic valvular regurgitation. GREAT VESSELS The aortic root is normal in size. The ascending aorta is normal in size. The IVC is normal in size a nd collapses >50% with inspiration. PERICARDIAL EFFUSION There is no evidence of significant pericardial effusion. Critical Notification Critical Value: No <Conclusion> The left ventricular systolic function is normal. The Ejection Fraction is 55-60%. There is normal LV segmental wall motion. Mild aortic regurgitation. Trace mitral regurgitation. Trace tricuspid regurgitation with an estimated PAP of 28 mmHg. There is no evidence of significant pericardial effusion. Signed by : Anderson Gao, Electronically Approved : 05/29/2021 15:16:47
--- NOTE | 2021-05-29 15:37 | HP ---
DATE OF SERVICE: 05/29/2021 ADMIT DATE: 05/28/2021 COMBINED HISTORY AND PHYSICAL AND DISCHARGE SUMMARY PATIENT LOCATION: 663. REASON FOR ADMISSION TO THE HOSPITAL: Chest pain, epigastric pain. HISTORY OF PRESENT ILLNESS: The patient is a 65-year-old male. The patient was having pain in the chest as well as retrosternal, epigastric came to the Emergency Room. Cardiac enzymes were negative. EKG negative for acute VT. The patient was admitted overnight for observation. Cardiac enzymes, EKG was negative and seen by Cardiology. Echocardiogram was done and the patient had a CT of the abdomen and was negative. CT head was negative and initial chest x-ray is suggestive of infiltrate at the base. Repeat chest x-ray, PA, lateral was negative. 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 PAST SURGICAL HISTORY: No major surgeries. ALLERGIES: No known allergies. MEDICATIONS: The patient is on dicyclomine, Pepcid. PERSONAL HISTORY: Denies smoking, alcohol, drug abuse. REVIEW OF SYSTEMS: Complains of more vague pain in the left chest as well as in the epigastric area. No nausea or vomiting. No radiation. Rest of the 14 systems reviewed and negative. PHYSICAL EXAMINATION: GENERAL: The patient is not in any distress. He is anxious to go home. VITAL SIGNS: Temperature 98, pulse 65, respirations 16, blood pressure 175/76, and 97 on room air. HEENT: Head is atraumatic. Pupils equal. Oral cavity, no congestion. NECK: Supple. Thyroid not enlarged. JVD not elevated. CHEST: Symmetrical. CARDIOVASCULAR: S1, S2. Some point tenderness to the left costochondral area, second rib. LUNGS: Clear to auscultation. ABDOMEN: Soft, nontender. Bowel sounds present. No mass palpable. EXTERNAL GENITALIA: No Herman. RECTUM: Deferred. EXTREMITIES: No calf tenderness, no edema. NEUROLOGIC: Cranial nerves intact. Power 5/5. No focal deficits noted. LABORATORY DATA: CBC, chem profile was unremarkable. Troponin was negative. Cholesterol 181, LDL 88, triglycerides 274. Thyroid was normal and COVID test negative. Influenza test negative. Urine was negative. CT head negative. CT of the abdomen and pelvis negative. Chest x-ray initially questionable infiltrate. Chest x-ray repeat was negative. FINAL IMPRESSION: 1. Chest pain for evaluation, looks like more of a skeletomuscular, costochondral. 2. Possible gastroesophageal reflux disease. 3. History of autoimmune hepatitis, resolved. PLAN: At this time, the patient was admitted overnight for observation. Cardiac enzymes negative. EKG negative for ischemia. Echo was done, report is pending. Repeat chest x-ray shows no infiltrate in the lung. The patient will be discharged home, followup as an outpatient. STEPHANIE DR: Dereck TID: [id number]
--- NOTE | 2021-05-29 16:59 | NUR ---
Discharge Note: Rajesh JUNE Yi6 [facility] Discharge instructions and discharge home medications reviewed with Patient and a copy given. All questions have been answered and understanding verbalized. The following instructions and handouts were given: chest pain, abd pain IV discontinued, no complications Patient discharged to home with self care. all belongings taken home with patient. Shin (pt's daughter) able to translate during discharge teaching.
--- NOTE | 2021-05-30 14:30 | PDOC ---
Provider Note Date of Service: DATE: 05/30/21 TIME: 14:30 Provider Note Dischrge summary dictated.#[id number]. Justifications for Admission Other Justification MARC BELLA MD May 30, 2021 14:30
--- NOTE | 2021-05-30 16:53 | DS ---
DATE OF DISCHARGE: 05/29/2021 REASON FOR ADMISSION TO THE HOSPITAL: Chest pain, abdominal pain. PROCEDURES DONE: 1. Echocardiogram. 2. CT of the abdomen and pelvis. 3. CT head. CONSULTATION: John Ugalde MD HOSPITAL COURSE: The patient is a 65-year-old male with complaints of chest pain, left sided, was brought to the hospital. He also has epigastric pain. Cardiac enzymes negative. Echocardiogram shows a good left ventricular function. CT scan of the abdomen and pelvis was negative. The patient had an initial chest x-ray, questionable infiltrate in the lung. Repeat chest x-ray, PA and lateral, no pneumonia. CT head was normal. The patient was discharged home. COVID test was negative. FINAL DIAGNOSES: 1. Left chest pain secondary to costochondritis. 2. Possible gastroesophageal reflux disease. 3. History of autoimmune hepatitis in the past, resolved. DISPOSITION: Home. DISCHARGE MEDICATIONS: See [facility] for discharge medications. DESTIN DR: Dereck TID: [id number]
== END 2021-05-29 16:30 | disposition home or self-care (01) ==
LOC: ER 12:27 → ED HOLD 17:15 → 6 SOUTH 18:34
PROVIDERS: ADMIT Internal Medicine; ATTEND Internal Medicine
DX: R07.89 Other chest pain (principal); Z20.822 Contact with and (suspected) exposure to COVID-19; J18.9 Pneumonia, unspecified organism; I10 Essential (primary) hypertension; M94.0 Chondrocostal junction syndrome [Tietze]; K75.4 Autoimmune hepatitis; R51.9 Headache, unspecified; K21.9 Gastro-esophageal reflux disease without esophagitis; R10.13 Epigastric pain; Z87.11 Personal history of peptic ulcer disease; Z79.899 Other long term (current) drug therapy; Z98.890 Other specified postprocedural states
CPT/HCPCS: 36415; 70450; 71045; 71046; 74177; 80053; 80061; 81001; 83605; 83690; 84443; 84484; 85025; 87040; 87086; 87428; 93005; 93306; 96361; 96365; 96375; 99285; G0378; J0456; J0696; J3490; J7030; J7050; Q9967; U0003; U0005; G0379; C8929